=== PATIENT | male | born 1940 ===

== ENCOUNTER 2025-01-03 09:46 | Outpatient (CLI) | payer MEDICARE, SELFPAY ==
--- NOTE | ~2025-01-03 | XR_ITS ---
EXAMINATION: XR hip RT 2V w AP pelvis, 01/03/2025 10:10 CDT HISTORY: M25.551 - Pain in right hip, FELL X 1 MONTH AGO COMPARISON: No comparisons available. Findings: No acute fracture or malalignment. Arthroplasty intact Soft tissues unremarkable. Impression: No acute fracture or malalignment. Reviewed, dictated and finalized at location P. Impression: No acute fracture or malalignment.
== END 2025-01-03 09:47 | disposition home or self-care (01) ==
PROVIDERS: PCP Emergency Medicine; Visit Provider Orthopaedic Surgery
DX: M25.551 Pain in right hip (principal)
CPT/HCPCS: 73502